=== PATIENT | female | born 1965 | race African-American/Black ===

== ENCOUNTER 2019-02-04 14:04 | Emergency (ER) | payer MEDICAID ==
[~2019-02-04 14:04] MED LIST: ADVAIR; ALBUTEROL INH; QVAR; UNK HTN MEDS
== END 2019-02-04 15:06 | disposition left against medical advice (07) ==
LOC: ER 14:04
DX: Z53.21 Procedure and treatment not carried out due to patient leaving prior to being seen by health care provider (principal)
CPT/HCPCS: 99283